=== PATIENT | female | born 1965 | race Caucasian/White ===

== ENCOUNTER 2019-02-20 16:49 | Emergency (ER) | payer OTHER ==
[~2019-02-20] VITALS: Ht 165.1 cm; Wt 90.7 kg
[~2019-02-20 16:49] MED LIST: AMIT50 PO; AMITRIPTYLINE; Amitriptyline100 MG PO; CIPR500 PO; CITRACAL; DITROPAN XL; EFFEXOR; ESTR2; ESTR2 PO; FOLI1; FOLI1 PO; GILENYA PO; Keppra750 MG PO; LEVE500 PO; MEDR2.5; MEDR2.5 PO; MULTCH; PHENA200 PO; PROM25 PO; SOLUMEDROL; SULTRIDS PO; VENL150ER PO; [UNRECOGNIZED DRUG - REMARK]
[2019-02-20 17:05] LABS: BASOPHILS ABSOLUTE AUTO 0.05 K/mm3 (0.00-0.23); BASOPHILS PERCENT AUTO 0 % (0-2); EOSINOPHILS ABSOLUTE AUTO 0.15 K/mm3 (0.00-0.68); EOSINOPHILS PERCENT AUTO 1 % (0-6); Hematocrit 34.6 % (33.0-51.0); Hemoglobin 11.5 g/dL (11.5-16.0); IMMATURE GRAN ABSOLUTE AUTO 0.05 K/mm3 (0.00-0.10); IMMATURE GRAN PERCENT AUTO 0 % (0-1); LYMPHOCYTES ABSOLUTE AUTO 0.71 K/mm3 (0.84-5.20); LYMPHOCYTES PERCENT AUTO 6 % (21-46); MONOCYTES ABSOLUTE AUTO 0.98 K/mm3 (0.16-1.47); MONOCYTES PERCENT AUTO 9 % (4-13); Mean Corpuscular HGB 30.3 pg (26.0-34.0); Mean Corpuscular HGB Conc 33.2 g/dL (31.5-36.5); Mean Corpuscular Volume 91 fL (80-100); Mean Platelet Volume 10.6 fL (9.1-12.4); NEUTROPHILS ABSOLUTE AUTO 9.45 K/mm3 (1.96-9.15); NEUTROPHILS PERCENT AUTO 83 % (41-73); Platelet Count 417 K/mm3 (150-400); RDW Coefficient Variation 12.9 % (11.7-14.2); RDW Standard Deviation 42.4 fL (35.1-46.3); Red Blood Cell Count 3.79 M/mm3 (3.80-5.20); White Blood Cell Count 11.39 K/mm3 (4.00-11.30)
[2019-02-20] MEDS ORDERED: Spironolactone25 MG PO (17:09)
[2019-02-20] MEDS ORDERED: LEVO-T25 MCG PO (17:09)
[2019-02-20 17:21] LABS: International Normalized Ratio 1.03; Prothrombin Time Results 10.9 Sec (9.7-11.5)
[2019-02-20 17:24] LABS: Alanine Aminotransfer (ALT/SGP 36 U/L (12-78); Alk Phos 154 U/L (50-136); Anion Gap 5 mmol/L (6-16); Aspartate Aminotrans (AST/SGOT 21 U/L (12-37); Bilirubin, Total 0.3 mg/dL (0.1-1.0); Blood Urea Nitrogen 18 mg/dL (8-24); Bun/Creatinine Ratio 19.2 (12.0-20.0); CO2, Blood 31 mmol/L (21-32); Chloride, Blood 99 mmol/L (98-108); Creatinine, Blood 0.94 mg/dL (0.40-1.00); Globulin, Blood 3.9 g/dL (2.2-4.0); Glomerular Filtration Rate >60 (60-); Glucose, Blood 106 mg/dL (70-99); Potassium, Blood 3.2 mmol/L (3.5-5.5); Sodium, Blood 135 mmol/L (136-145); Total Protein, Blood 7.9 g/dL (6.4-8.2)
[2019-02-20] MEDS ORDERED: GILENYA0.5 MG PO (17:34)
[2019-02-20] MEDS ORDERED: VITAMIN D32000 UNI1 PO (17:35)
== END 2019-02-20 19:20 | disposition home or self-care (01) ==
LOC: ER 16:49
PROVIDERS: Emergency Medicine
DX: G40.909 Epilepsy, unspecified, not intractable, without status epilepticus (principal); G81.91 Hemiplegia, unspecified affecting right dominant side
CPT/HCPCS: 36415; 70450; 80053; 85025; 85610; 93005; 93010; 96365; 96375; 99285-25; J1953; J2405

== ENCOUNTER 2022-06-19 20:35 | Emergency (ER) | payer OTHER ==
[~2022-06-19] VITALS: Ht 165.1 cm; Wt 81.7 kg
[~2022-06-19 20:35] MED LIST changes: +GILENYA0.5 MG PO; +LEVO-T25 MCG PO; +Spironolactone25 MG PO; +VITAMIN D32000 UNI1 PO
== END 2022-06-19 23:38 | disposition home or self-care (01) ==
LOC: ER 20:35
DX: S09.90XA Unspecified injury of head, initial encounter (principal); G35 Multiple sclerosis; X58.XXXA Exposure to other specified factors, initial encounter; Z79.890 Hormone replacement therapy; Z79.899 Other long term (current) drug therapy; Z91.81 History of falling
CPT/HCPCS: 70450

== ENCOUNTER 2022-10-18 18:15 | Inpatient (IN) | payer OTHER ==
[~2022-10-18] VITALS: Ht 165.1 cm; Wt 57.0 kg
[~2022-10-18 18:15] MED LIST changes: -LEVO-T25 MCG PO; +LEVSOD25 PO
[2022-10-18 19:47] LABS: Source, Urine Fem Cath
[2022-10-18 19:50] LABS: BASOPHILS ABSOLUTE AUTO 0.05 K/mm3 (0.00-0.23); BASOPHILS PERCENT AUTO 0 % (0-2); EOSINOPHILS ABSOLUTE AUTO 0.01 K/mm3 (0.00-0.68); EOSINOPHILS PERCENT AUTO 0 % (0-6); Hematocrit 33.1 % (33.0-51.0); Hemoglobin 11.5 g/dL (11.5-16.0); IMMATURE GRAN ABSOLUTE AUTO 0.35 K/mm3 (0.00-0.10); IMMATURE GRAN PERCENT AUTO 1 % (0-1); LYMPHOCYTES ABSOLUTE AUTO 0.24 K/mm3 (0.84-5.20); LYMPHOCYTES PERCENT AUTO 1 % (21-46); MONOCYTES ABSOLUTE AUTO 1.37 K/mm3 (0.16-1.47); MONOCYTES PERCENT AUTO 6 % (4-13); Mean Corpuscular HGB 30.6 pg (26.0-34.0); Mean Corpuscular HGB Conc 34.7 g/dL (31.5-36.5); Mean Corpuscular Volume 88 fL (80-100); Mean Platelet Volume 10.5 fL (9.1-12.4); NEUTROPHILS ABSOLUTE AUTO 22.54 K/mm3 (1.96-9.15); NEUTROPHILS PERCENT AUTO 92 % (41-73); Platelet Count 284 K/mm3 (150-400); RDW Standard Deviation 41.8 fL (35.1-46.3); Red Blood Cell Count 3.76 M/mm3 (3.80-5.20); White Blood Cell Count 24.56 K/mm3 (4.00-11.30)
[2022-10-18 19:53] LABS: Appearance, Urine Cloudy (Clear); Bilirubin, Urine Neg (Neg); Blood, Urine 2+ (Neg); Color, Urine Yellow (P-Yellow); Glucose Qualitative, Urine Neg (Neg); Ketones, Urine Neg (Neg); Leukocyte Esterase, Urine 3+ (Neg); Nitrite, Urine Pos (Neg); Protein, Urine 2+ (Neg); Urobilinogen, Urine NORM (Normal)
[2022-10-18 20:05] LABS: Bacteria Many /hpf; Squamous Epithelial Cells Few /hpf (Few); Transitional Epithelial Cells Rare /hpf (0-Rare); WBC Cast 0-2 /lpf (0); White Blood Cells, Urine 50-100 /hpf (0-5)
[2022-10-18 20:35] LABS: Albumin, Blood 3.4 g/dL (3.4-5.0); Albumin/Globulin Ratio 0.9 (0.8-1.8); Bilirubin, Total 0.6 mg/dL (0.1-1.0); Bun/Creatinine Ratio 14.5 (12.0-20.0); Calcium, Blood 9.7 mg/dL (8.5-10.1); Creatinine, Blood 0.97 mg/dL (0.40-1.00); Globulin, Blood 3.9 g/dL (2.2-4.0); Potassium, Blood 2.9 mmol/L (3.5-5.5); Total Protein, Blood 7.3 g/dL (6.4-8.2)
[2022-10-18 23:12] LABS: Magnesium, Blood 1.8 mg/dL (1.6-2.4)
[2022-10-19] MEDS ORDERED: KLOR-CON 1010 ME9 PO (03:42)
[2022-10-19] MEDS ORDERED: SPIRONOLACTONE25 MG PO (03:42)
--- NOTE | 2022-10-19 04:52 | NUR ---
SHIFT SUMMARY NOC ADMIT FROM ED WITH DX OF UROSEPSIS. PT A/O 2-3. CONFUSED AT TIMES. PT INC OF URINE X 1. PT HAS 1L NS INFUSING 2 75 MLS/HR. PT IS RESIDENT AT [facility]. PT MOTHER HIGHLY INVOLVED WITH PT CARE. PT HAD POTASSIUM OF 2.9 YESTERDAY WITH 60 MEQ REPLACEMENT, AWAITING AM LABS. PT SODIUM WAS 132 PT HAS RECEIVED 2L NS SO FAR WITH 3L CURRENTLY INFUSING. PT HAS MS AND IS WC BOUND BASELINE. PT ON TELE RUNNING NSR @ 99 BPM. PT IS CURRENTLY RESTING WITH BED ALARM ON, BED IN LOWEST POSITION, AND CALL LIGHT WITHIN REACH.
[2022-10-19 05:34] LABS: BASOPHILS ABSOLUTE AUTO 0.04 K/mm3 (0.00-0.23); BASOPHILS PERCENT AUTO 0 % (0-2); EOSINOPHILS ABSOLUTE AUTO 0.05 K/mm3 (0.00-0.68); EOSINOPHILS PERCENT AUTO 0 % (0-6); Hematocrit 36.5 % (33.0-51.0); IMMATURE GRAN ABSOLUTE AUTO 0.11 K/mm3 (0.00-0.10); IMMATURE GRAN PERCENT AUTO 1 % (0-1); LYMPHOCYTES ABSOLUTE AUTO 0.25 K/mm3 (0.84-5.20); LYMPHOCYTES PERCENT AUTO 2 % (21-46); MONOCYTES ABSOLUTE AUTO 0.75 K/mm3 (0.16-1.47); MONOCYTES PERCENT AUTO 4 % (4-13); Mean Corpuscular HGB 30.7 pg (26.0-34.0); Mean Corpuscular HGB Conc 32.9 g/dL (31.5-36.5); Mean Platelet Volume 10.4 fL (9.1-12.4); NEUTROPHILS ABSOLUTE AUTO 15.79 K/mm3 (1.96-9.15); NEUTROPHILS PERCENT AUTO 93 % (41-73); Platelet Count 226 K/mm3 (150-400); RDW Coefficient Variation 13.2 % (11.7-14.2); Red Blood Cell Count 3.91 M/mm3 (3.80-5.20); White Blood Cell Count 16.99 K/mm3 (4.00-11.30)
[2022-10-19 06:10] LABS: Mean Corpuscular Volume 93 fL (80-100)
[2022-10-19 06:13] LABS: Albumin, Blood 3.1 g/dL (3.4-5.0); Albumin/Globulin Ratio 0.8 (0.8-1.8); Bilirubin, Total 0.5 mg/dL (0.1-1.0); Calcium, Blood 8.6 mg/dL (8.5-10.1); Globulin, Blood 3.8 g/dL (2.2-4.0); Potassium, Blood 3.5 mmol/L (3.5-5.5); Total Protein, Blood 6.9 g/dL (6.4-8.2)
[2022-10-19 07:42] VITALS: BP 138/66
[2022-10-19 16:09] VITALS: BP 141/78
--- NOTE | 2022-10-19 17:54 | NUR ---
SHIFT SUMMARY- PT IS ALERT, PLESANT AND COOPERATIVE. SHE IS EATING AND DRIKING WELL. HER MOM WAS AT BEDSIDE THIS SHIFT. SHE IS RECIEVING IV ABX. WORKED WITH PT THIS SHIFT. SHE IS CURRENTLY IN THE CHAIR CALL LIGHT IS WITHIN REACH.
[2022-10-19 19:49] VITALS: BP 131/70
[2022-10-20 04:21] VITALS: BP 115/85
--- NOTE | 2022-10-20 05:03 | NUR ---
PT RESTING ON AND OFF DURING THE NIGHT. PT CONFUSED ALERT TO SELF. CALL LIGHT IIIN REACH BED ALRM ON. PT HAVING FEVER GIVEN TYLENOL.
[2022-10-20 06:21] LABS: Hemoglobin 10.4 g/dL (11.5-16.0); Mean Corpuscular HGB 30.5 pg (26.0-34.0); Mean Corpuscular HGB Conc 34.7 g/dL (31.5-36.5); Mean Platelet Volume 10.6 fL (9.1-12.4); Platelet Count 198 K/mm3 (150-400); RDW Coefficient Variation 13.2 % (11.7-14.2); RDW Standard Deviation 42.5 fL (35.1-46.3); Red Blood Cell Count 3.41 M/mm3 (3.80-5.20); White Blood Cell Count 9.57 K/mm3 (4.00-11.30)
[2022-10-20 06:26] LABS: Mean Corpuscular Volume 88 fL (80-100)
[2022-10-20 06:58] LABS: Albumin, Blood 2.6 g/dL (3.4-5.0); Albumin/Globulin Ratio 0.7 (0.8-1.8); Bilirubin, Total 0.3 mg/dL (0.1-1.0); Bun/Creatinine Ratio 13.2 (12.0-20.0); Calcium, Blood 8.7 mg/dL (8.5-10.1); Creatinine, Blood 0.91 mg/dL (0.40-1.00); Globulin, Blood 3.8 g/dL (2.2-4.0); Potassium, Blood 3.4 mmol/L (3.5-5.5); Thyroid Stimulating Hormone 1.75 uIU/mL (0.360-4.800); Thyroxine (T4) 5.6 ug/dL (4.8-13.9); Total Protein, Blood 6.4 g/dL (6.4-8.2)
[2022-10-20 07:32] VITALS: BP 120/69
--- NOTE | 2022-10-20 10:31 | NUR ---
Pt. is awake in bed and welcomes my visit. Pts. mother is present, but steps out soon after I arrive. Pt. is pleasant, but displays evidence of acute headaches. With theraputic listening and a calming presence Pt. displays evidence of a hopeful spirit. Rapport is established. Praayed with Pt. Pt. verbalized gratitude for the spiritual care visit.
[2022-10-20 15:19] VITALS: BP 100/64
--- NOTE | 2022-10-20 18:49 | NUR ---
SHIFT SUMMARY VSS. A&O X 2. CAN BE FORGETFUL, SPEECH IS MUMBLED & SLURRED. C/O WOLF TODAY. PROVIDED ORDERS FOR NORCO. MEDICATED TWICE WITH GOOD RELIEF STATED BY PT. ICE PACK PLACED ON BACK OF NECK FOR COMFORT. HEAD CT ORDERED AND DONE. REPORT ON CHART. PT IS 2 PERSON MAX ASSIST TO CHAIR/BSC. WILL LIKELY RETURN TO SENIOR CARE WHEN READY FOR DC.
[2022-10-20 19:56] VITALS: BP 126/58
--- NOTE | 2022-10-21 01:31 | NUR ---
PT HAVING HEADACHES DURING DAY SHIFT PT WAS GIVEN NORCO AND TYLENOL . ICE PACK TO NECK PLACED TO HELP WITH WOLF BUT DID NOT SEEM TO HELP. K PAD ( WARM PACK PLACEDD BEHIND PTS NECK. PT FELL ASLEEP FOR A WHILE AND SEEMED COMFORTBLE. PT DEPENDS WAS CHANGED AND PT APPEARED VERY UNCOMFORTBLE AT THAT TIME. PT GIVEN A NORCO AND K PALD REPLACED BEHIND PTS NECK. PT SLEEPING AT THIS TIME AN APPEARS TO BE COMFORTABLE. PT S MOTHER HERE EARLYER AND STATED SHE WANTS AN MRI DONE PTS MOTHER VERY WORRIED AND VERY ACTIVE IN PTS CARE. PT FOR LAST 2 DAYS HAS SEEMED CONFUSED AND ORIENTED X2 TO SELF AND PERSON. UNSURE BASE LINE BUT PTS MOTHER DID NOT SEEM CONCERNED ABOUT PT MENTAION IF IT WAS A CHANGE. CALL LIGHT IN REACH BED ALARM ON.
[2022-10-21 02:42] VITALS: BP 132/62
[2022-10-21 05:48] LABS: Bun/Creatinine Ratio 11.6 (12.0-20.0); Creatinine, Blood 0.95 mg/dL (0.40-1.00); Potassium, Blood 3.9 mmol/L (3.5-5.5)
[2022-10-21 07:54] VITALS: BP 97/81
[2022-10-21 15:24] VITALS: BP 114/54
--- NOTE | 2022-10-21 18:10 | NUR ---
PATIENT STARTED ON EAR GTT TO THE LEFT, OTITIS EXTERNA, MIGRAINE MEDICATION ADMINISTERED, PATIENT STATES PAIN IS IMPROVED, MORE ALERT TODAY, WHEN CONFUSION INCREASES SPEECH BECOMES VERY MUMBLED, MOTHER VISITED AND TALKED WITH DR MORAES, CALL LIGHT WITH IN REACH, MOTHER ENCIOURAGED TO HAVE COMPLETE FAMILY IDENTIFY A PRIMARY SPEECH FOR NURSES TO REPORT TO AND FOR THAT PERSON TO RELAY INFORMATION TO THE REST OF THE FAMILY. MOTHER CONTACTED NURSING FOOD SERVICE AIDE YESTERDAY ABOUT POA OF PATIENT AND NOT BEING REPORTED TO. CONSTANT REMINDING OF ASPIRATION PRECAUTIONS WHILE SWALLOWING MEDICATIONS, WILL RELAY TO PM RN
[2022-10-21 19:27] VITALS: BP 134/63
--- NOTE | 2022-10-22 02:59 | NUR ---
SHIFT SUMMERY, PT SEEMED MORE ALERT AT CHANGE OF SHIFT THSN SHE HAD BEEN THE LAST SEVERAL NIGHT , PT ALSO BEING MORE PHSICALY ACTIVE SITTING UP IN BED AND MOVING AROUND ALOT IN BED. PT GIVEN TYLENOL FOR PAIN AND MEDICATION FOR EAR ADMINISTRED. PT DENIED NEED FOR A SNACK. PT MOVING ALL OVER BED ON HER OWN BUT REPOSITIONE. PT SLEEPING MOST OF THE NIGHT AND APPEARS TO BE COMFORTABLE. PT DOSE NOT HAVE LABORED BREATHING NOR SEEM IN ANY KIND OF DISTRESS. CALL LIGHT IN REACH AND BED ALARM ON.
[2022-10-22 04:06] VITALS: BP 138/67
[2022-10-22 07:40] VITALS: BP 129/73
[2022-10-22] MEDS ORDERED: CEPH500 PO (13:43)
[2022-10-22] MEDS ORDERED: NEOMYCIN-POLYMY10 ML BOTHEARS (13:46)
--- NOTE | 2022-10-22 15:55 | NUR ---
DISCHARGE SUMMARY PT AxOx2-3 WITH INTERM FORGETFULNESS/CONFUSION. PT'S MOTHER IN ROOM THIS SHIFT, WHO IS ALSO HER CAREGIVER. PT DENIES PAIN THIS SHIFT. PT AND MOTHER GIVEN DC INSTRUCTIONS INCLUDING DC MEDICATIONS, FOLLOW UP APPOINTMENTS AND PATIENT EDUCATION HAND OUTS. PT AND HER MOTHER VERBALIZE UNDERSTANDING AND DENY ANY QUESTIONS AT THIS TIME. PT SAFELY ESCORTED OUT VIA WC WITH HER MOTHER AND RESEARCH AGRICULTURAL ENGINEER.
== END 2022-10-22 15:22 | disposition home or self-care (01) | DRG 871 ==
LOC: ER 18:15 → MEDS 22:48
PROVIDERS: Internal Medicine; Student in an Organized Health Care Education/Training Program; ADMIT Internal Medicine
DX: A41.51 Sepsis due to Escherichia coli [E. coli] (principal); G92.8 Other toxic encephalopathy; E87.1 Hypo-osmolality and hyponatremia; N39.0 Urinary tract infection, site not specified; I67.89 Other cerebrovascular disease; E87.6 Hypokalemia; E03.9 Hypothyroidism, unspecified; H92.02 Otalgia, left ear; G40.909 Epilepsy, unspecified, not intractable, without status epilepticus; F01.A0 Vascular dementia, mild, without behavioral disturbance, psychotic disturbance, mood disturbance, and anxiety; R51.9 Headache, unspecified; R79.89 Other specified abnormal findings of blood chemistry; G35 Multiple sclerosis; Z99.3 Dependence on wheelchair; Z79.890 Hormone replacement therapy; Z79.899 Other long term (current) drug therapy
CPT/HCPCS: 36415; 70450; 71045; 80048; 80053; 81001; 83605; 83735; 84436; 84443; 85025; 85027; 87077; 87086; 87186; 93005; 93010; 96361; 96365; 97110; 97116; 97162; 97530; 99285-25; A9270; J0696; J1650; J7030; P9612

== ENCOUNTER 2022-11-07 14:05 | Inpatient (IN) | payer OTHER ==
[~2022-11-07] VITALS: Ht 165.1 cm; Wt 77.8 kg
[~2022-11-07 14:05] MED LIST changes: +CEPH500 PO; +KLOR-CON 1010 ME9 PO; +NEOMYCIN-POLYMY10 ML BOTHEARS; +SPIRONOLACTONE25 MG PO
[2022-11-07 14:59] LABS: BASOPHILS ABSOLUTE AUTO 0.05 K/mm3 (0.00-0.23); BASOPHILS PERCENT AUTO 0 % (0-2); EOSINOPHILS ABSOLUTE AUTO 0.01 K/mm3 (0.00-0.68); EOSINOPHILS PERCENT AUTO 0 % (0-6); Hematocrit 35.7 % (33.0-51.0); Hemoglobin 11.9 g/dL (11.5-16.0); IMMATURE GRAN ABSOLUTE AUTO 0.12 K/mm3 (0.00-0.10); IMMATURE GRAN PERCENT AUTO 1 % (0-1); LYMPHOCYTES ABSOLUTE AUTO 0.29 K/mm3 (0.84-5.20); LYMPHOCYTES PERCENT AUTO 2 % (21-46); MONOCYTES ABSOLUTE AUTO 0.83 K/mm3 (0.16-1.47); MONOCYTES PERCENT AUTO 4 % (4-13); Mean Corpuscular HGB 29.7 pg (26.0-34.0); Mean Corpuscular HGB Conc 33.3 g/dL (31.5-36.5); Mean Corpuscular Volume 89 fL (80-100); Mean Platelet Volume 10.6 fL (9.1-12.4); NEUTROPHILS ABSOLUTE AUTO 18.05 K/mm3 (1.96-9.15); NEUTROPHILS PERCENT AUTO 93 % (41-73); Platelet Count 376 K/mm3 (150-400); RDW Coefficient Variation 13.1 % (11.7-14.2); Red Blood Cell Count 4.01 M/mm3 (3.80-5.20); White Blood Cell Count 19.35 K/mm3 (4.00-11.30)
[2022-11-07 15:21] LABS: International Normalized Ratio 1.18; Prothrombin Time Results 12.3 Sec (9.7-11.5)
[2022-11-07 15:26] LABS: Albumin, Blood 3.4 g/dL (3.4-5.0); Albumin/Globulin Ratio 0.7 (0.8-1.8); Bilirubin, Direct 0.3 mg/dL (0.0-0.3); Bilirubin, Indirect 0.2 mg/dL (0.1-0.7); Bilirubin, Total 0.5 mg/dL (0.1-1.0); Bun/Creatinine Ratio 15.7 (12.0-20.0); Calcium, Blood 10.2 mg/dL (8.5-10.1); Creatinine, Blood 1.27 mg/dL (0.40-1.00); Globulin, Blood 4.6 g/dL (2.2-4.0); Phosphorus, Blood 2.3 mg/dL (2.5-4.9)
[2022-11-07 16:07] LABS: Influenza A, PCR NEGATIVE (NEGATIVE); Influenza B, PCR NEGATIVE (NEGATIVE); Resp Syncytial Virus, PCR NEGATIVE (NEGATIVE); SARS-Cov-2 (COVID-19) PCR, MMC NEGATIVE (NEGATIVE)
[2022-11-07 17:54] VITALS: BP 108/72
[2022-11-07 20:09] VITALS: BP 112/77
[2022-11-07 21:07] LABS: Source, Urine Straight Cath
[2022-11-07 21:11] LABS: Appearance, Urine Cloudy (Clear); Bilirubin, Urine Neg (Neg); Blood, Urine 4+ (Neg); Color, Urine Yellow (P-Yellow); Glucose Qualitative, Urine Neg (Neg); Ketones, Urine Neg (Neg); Leukocyte Esterase, Urine 3+ (Neg); Nitrite, Urine Pos (Neg); Protein, Urine 3+ (Neg); Urobilinogen, Urine NORM (Normal)
[2022-11-07 21:19] LABS: White Blood Cells, Urine TNTC /hpf (0-5)
[2022-11-07 21:20] LABS: Bacteria Mod /hpf; Squamous Epithelial Cells Not Seen /hpf (Few)
[2022-11-08 02:19] VITALS: BP 131/78
[2022-11-08 05:12] LABS: BASOPHILS ABSOLUTE AUTO 0.02 K/mm3 (0.00-0.23); BASOPHILS PERCENT AUTO 0 % (0-2); EOSINOPHILS ABSOLUTE AUTO 0.01 K/mm3 (0.00-0.68); EOSINOPHILS PERCENT AUTO 0 % (0-6); Hematocrit 29.4 % (33.0-51.0); IMMATURE GRAN ABSOLUTE AUTO 0.07 K/mm3 (0.00-0.10); IMMATURE GRAN PERCENT AUTO 1 % (0-1); LYMPHOCYTES ABSOLUTE AUTO 0.49 K/mm3 (0.84-5.20); LYMPHOCYTES PERCENT AUTO 4 % (21-46); MONOCYTES ABSOLUTE AUTO 0.46 K/mm3 (0.16-1.47); MONOCYTES PERCENT AUTO 4 % (4-13); Mean Corpuscular HGB 30.1 pg (26.0-34.0); Mean Corpuscular Volume 89 fL (80-100); Mean Platelet Volume 10.9 fL (9.1-12.4); NEUTROPHILS ABSOLUTE AUTO 11.78 K/mm3 (1.96-9.15); NEUTROPHILS PERCENT AUTO 92 % (41-73); Platelet Count 268 K/mm3 (150-400); RDW Coefficient Variation 13.2 % (11.7-14.2); RDW Standard Deviation 43.1 fL (35.1-46.3); Red Blood Cell Count 3.32 M/mm3 (3.80-5.20); White Blood Cell Count 12.83 K/mm3 (4.00-11.30)
--- NOTE | 2022-11-08 05:59 | NUR ---
SHIFT SUMMARY PT SITTING UP IN BED EATING DINNER DURING BEDSIDE REPORT, MOTHER ASSISTING PT WITH FEEDING, PT DENIES PAIN, BOLUS INFUSING FROM ED, STRAIGHT CATH DONE AND URINE SAMPLE OBTAINED- ADMISSION ASSESSMENT DONE- PT INCONTIENT, PT ABLE TO TURN SIDE TO SIDE IN BED, 0220 PT FEBRILE AT 100.8- GAVE TYLENOL AND REMOVED EXTRA BLANKETS FROM PT-TEMP DECREASED TO 99.0, 0400- CALL FROM LAB RE: POSITIVE BLOOD CULTURE GROWING BOTH GRAM + AND GRAM - BACILLI- WILL PHONE CALL TO DR. HAGER-NO NEW ORDERS- BED LOW POSITION, CALL LIGHT WITHIN REACH, BED ALARM IN PLACE
[2022-11-08 06:02] LABS: Albumin, Blood 2.5 g/dL (3.4-5.0); Albumin/Globulin Ratio 0.7 (0.8-1.8); Bilirubin, Total 0.7 mg/dL (0.1-1.0); Bun/Creatinine Ratio 15.9 (12.0-20.0); Calcium, Blood 8.6 mg/dL (8.5-10.1); Creatinine, Blood 1.26 mg/dL (0.40-1.00); Globulin, Blood 3.7 g/dL (2.2-4.0); Magnesium, Blood 1.8 mg/dL (1.6-2.4); Potassium, Blood 3.4 mmol/L (3.5-5.5); Thyroid Stimulating Hormone 0.53 uIU/mL (0.360-4.800); Total Protein, Blood 6.2 g/dL (6.4-8.2)
[2022-11-08 07:38] VITALS: BP 118/73
[2022-11-08 11:24] LABS: Bun/Creatinine Ratio 17.1 (12.0-20.0); Creatinine, Blood 1.23 mg/dL (0.40-1.00); Potassium, Blood 3.7 mmol/L (3.5-5.5)
[2022-11-08 14:32] VITALS: BP 141/63
--- NOTE | 2022-11-08 16:36 | NUR ---
PATIENT A/OX3, FORGETFUL AT TIMES. PATIENT HAS DIFFICULTY WITH WORD FINDING AND IS SLOW TO RESPOND, BUT CAN MAKE HER NEEDS KNOWN. SLIGHT FEVER THIS SHIFT, AND TYLENOL GIVEN TO TREAT. PT/OT ORDERED AND PATIENT DID SPEND A MAJORITY OF THIS SHIFT UP IN CHAIR. TRANSFERS WITH FWW, GB AND 2 ASSIST. PATIENTS MOTHER HERE FOR MEALS TO ASSIST WITH FEEDING AND IS VERY SUPPORTIVE. PATIENT TOLERATING DIET. IV SITE LOST THIS AFTERNOON AND CHARGE NURSE IS ATTEMPTING TO PLACE A POWERGLIDE. SKIN INTACT. FALL PRECAUTIONS IN PLACE.
[2022-11-08 21:11] VITALS: BP 93/57
--- NOTE | 2022-11-09 04:01 | NUR ---
SHIFT SUMMARY PATIENT HAD NO ACUTE CHANGES. AXOX 2-3 FORGETFUL AND SLOW TO RESPOND. HX M.S. NPO FOR ULTRA SOUND OF ABDOMEN. NEW POWERGLIDE KUSHAL. LR INFUSING AT 100 mL/HR. IV ABXS INFUSED. FEBRILE WITH TEMP 101.6 AND TYLENOL 650 MG GIVEN WITH RECHECK OF 98.5. DENIES CHEST PAIN, SOB, AND N/V. TWO ASSIST TRANSFER WITH GB TO BSC. MOTHER AT BEDSIDE AT SHIFT CHANGE. CALL LIGHT IN REACH. BED IN LOWEST POSITION. WILL CONTINUE TO MONITOR UNTIL DAY SHIFT NURSE ASSUMES CARE.
[2022-11-09 04:40] VITALS: BP 163/78
[2022-11-09 05:10] LABS: BASOPHILS ABSOLUTE AUTO 0.02 K/mm3 (0.00-0.23); BASOPHILS PERCENT AUTO 0 % (0-2); EOSINOPHILS ABSOLUTE AUTO 0.15 K/mm3 (0.00-0.68); EOSINOPHILS PERCENT AUTO 1 % (0-6); Hematocrit 28.8 % (33.0-51.0); Hemoglobin 9.6 g/dL (11.5-16.0); IMMATURE GRAN ABSOLUTE AUTO 0.07 K/mm3 (0.00-0.10); IMMATURE GRAN PERCENT AUTO 1 % (0-1); LYMPHOCYTES PERCENT AUTO 5 % (21-46); MONOCYTES ABSOLUTE AUTO 0.84 K/mm3 (0.16-1.47); MONOCYTES PERCENT AUTO 8 % (4-13); Mean Corpuscular HGB Conc 33.3 g/dL (31.5-36.5); Mean Corpuscular Volume 90 fL (80-100); Mean Platelet Volume 10.8 fL (9.1-12.4); NEUTROPHILS ABSOLUTE AUTO 9.35 K/mm3 (1.96-9.15); NEUTROPHILS PERCENT AUTO 86 % (41-73); Platelet Count 267 K/mm3 (150-400); RDW Coefficient Variation 13.4 % (11.7-14.2); RDW Standard Deviation 44.3 fL (35.1-46.3); White Blood Cell Count 10.93 K/mm3 (4.00-11.30)
[2022-11-09 05:33] LABS: Bun/Creatinine Ratio 16.9 (12.0-20.0); Creatinine, Blood 1.24 mg/dL (0.40-1.00); Phosphorus, Blood 2.1 mg/dL (2.5-4.9); Potassium, Blood 3.4 mmol/L (3.5-5.5)
[2022-11-09 09:04] VITALS: BP 140/86
--- NOTE | 2022-11-09 09:58 | NUR ---
pt laying in bed, was npo as she was having u/s, did give her am meds with sip of water, one at a time, lungs are clear on r/a, no cough noted, hrr, no edema noted, ppp+2, cap refill <3sec vs stable, afebrile, iv site is clear and patent, power glide in place to dwight site is clear and patent, infusing kphos at this time, btx4, abd flat soft nontender, incont of bowel/bladder, briefs in place, skin has pink panus otherwise c/w/d, hx ms, pt hands are contracted, bedbound, milena, call light in reach.
--- NOTE | 2022-11-09 15:54 | NUR ---
Pt. is sitting up in a recliner and welcomes my visit. Pt. is pleasant and is known to this drawing instructor from previous hospitalizations as well as the community. Facilitate a life review. Pt is occassionally difficult to understand, because of her long-term condition, but displays evidence of engagement and focus. Rapport is established and Pt. displays evidence of trust. Prayed with Pt. Pt. verbalized graitutde for the spiritual care visit and welcomed this drawing instructor to return.
--- NOTE | 2022-11-09 19:14 | NUR ---
pt had a shower today, mom has been in to visit, and assist with care, pt has had no acute changes this shift, call light in reach.
[2022-11-09 19:27] VITALS: BP 133/69
[2022-11-10 05:08] VITALS: BP 120/79
[2022-11-10 05:13] LABS: HBSAG SCREEN Negative (Negative); HCV AB Non Reactive (Non Reactive); HEP A AB, IGM Negative (Negative); HEP B CORE AB, IGM Negative (Negative)
[2022-11-10 06:12] LABS: Bun/Creatinine Ratio 17.2 (12.0-20.0); Calcium, Blood 8.7 mg/dL (8.5-10.1); Creatinine, Blood 1.22 mg/dL (0.40-1.00); Phosphorus, Blood 2.8 mg/dL (2.5-4.9); Potassium, Blood 3.6 mmol/L (3.5-5.5)
[2022-11-10 07:15] VITALS: BP 126/74
[2022-11-10 15:18] VITALS: BP 115/55
--- NOTE | 2022-11-10 16:07 | NUR ---
Pt. is awake in a recliner and welcomes my visit. Pt. is unsettled about the nature of her recliner. Assist Pt. by contacting Pts. [employer] who was able to give assistance. Gracefully ended ou visit when Pt. requested a transfer to the restroom. Pt. verbalized gratitude for the spiritual care visit.
--- NOTE | 2022-11-10 18:27 | NUR ---
MAKES NEEDS KNOWN, MS +10 YEARS, SPEECH IS GARBLED AND HARD TO UNDERSTAND, PATEINT HELPFUL WITH CARE, 1-2 PERSON ASSIST, PATEINT DOES TIRE LATER IN THE DAY, MOTHER HELPFUL WITH CARE, PT/OT WORKED WITH PATIENT TODAY, NO ACUTE CHANGES, CALL LIGHT WITH IN REACH
[2022-11-10 19:24] VITALS: BP 137/76
--- NOTE | 2022-11-11 03:47 | NUR ---
SHIFT SUMMARY 57 YR F ADMITTED ON 11/08/22 FOR SEPSIS UTI. FULL CODE. NO ACUTE CHANGES THIS SHIFT. PT'S MOM WAS VISITING AT BEGINNING OF SHIFT. PT WAS UP IN THE RECLINER WATCHING TV. SHE HAS HAD NO C/O PAIN OR DISCOMFORT THIS SHIFT. SHE HAS SLEPT THROUGH MOST OF THE NIGHT. SPEECH CAN BE GARBLED AND HARD TO UNDERSTAND BUT PT IS ABLE TO MAKE HER NEEDS KNOWN.
[2022-11-11 04:00] VITALS: BP 131/72
[2022-11-11 06:09] LABS: Bun/Creatinine Ratio 17.4 (12.0-20.0); Calcium, Blood 9.1 mg/dL (8.5-10.1); Creatinine, Blood 1.09 mg/dL (0.40-1.00); Potassium, Blood 3.7 mmol/L (3.5-5.5)
[2022-11-11 07:31] VITALS: BP 110/80
[2022-11-11] MEDS ORDERED: CEFTRIAXONE2 G1 IV (14:57)
[2022-11-11] MEDS ORDERED: VISBIOME 112.51 EACH PO (14:58)
[2022-11-11 16:01] VITALS: BP 139/73
--- NOTE | 2022-11-11 17:02 | NUR ---
MAKES NEEDS KNOWN, UNCOORDINATED BODY MOVEMENTS DUE TO ADVANCED MS, PLEASANT TO CARE, POSSIBLE DISCHARGED ON SUNDAY, NO ACUTE CHANGES, USES CALL LIGHT APPRIATELY, BED/CHAIR ALARM ON AT ALL TIMES, MOM VERY HELPFUL WITH CARE, CALL LIGHT WITH IN REACH
[2022-11-11 19:29] VITALS: BP 130/77
[2022-11-12 03:26] VITALS: BP 131/76
--- NOTE | 2022-11-12 05:55 | NUR ---
SHIFT SUMMARY NOC PT A/O 2-3. PLEASANTLY CONFUSED AND COOPERATIVE WITH CARE. PT HAS PUREWICK IN PLACE DRAINING CLEAR YELLOW URINE TO SUCTION. PT HAS LR INFUSING @ 100 MLS/HR. PG IN KUSHAL THAT DOES NOT DRAW. HAS REDNESS IN GROIN AREA, POWDER APPLIED. PT IS RESIDENT AT [facility]. PT CURRENTLY RESTING WITH BED ALARM ON, BED IN LOWEST POSITION, AND CALL LIGHT WITHIN REACH.
[2022-11-12 06:10] LABS: Bun/Creatinine Ratio 15.7 (12.0-20.0); Calcium, Blood 9.4 mg/dL (8.5-10.1); Creatinine, Blood 1.02 mg/dL (0.40-1.00); Potassium, Blood 3.8 mmol/L (3.5-5.5)
[2022-11-12 07:38] VITALS: BP 133/64
[2022-11-12 15:36] VITALS: BP 109/62
--- NOTE | 2022-11-12 15:42 | NUR ---
SHIFT SUMMARY MS MARTINEZ IS ALERT, ORIENTATED X2-3, FORGETFUL WITH POOR SHORT TERM MEMORY. SHE HAS HAD GOOD FAMILY/FRIEND SUPPORT AT HER SIDE TODAY. DENIES ANY PAIN. UNSTEADY TRANSFER STAND-PIVOT WITH GAIT BELT, WALKER AND 2 PERSON ASSIST. SAT UP IN THE CHAIR FOR BREAKFAST AND LUNCH. INCONTINENT OF URINE, PUREWICK IN PLACE. IVF INFUSING AT 100CC/HR. BED LOW, CALL LIGHT IN REACH.
[2022-11-12 19:24] VITALS: BP 128/113
--- NOTE | 2022-11-12 23:45 | NUR ---
2025 PT LYING IN BED, DENIES ANY DISCOMFORT AT THIS TIME. NO APPARENT SIGNS OF DISTRESS. PT DENIES NEED FOR ANYTHING AT THIS TIME. CALL LIGHT IS IN REACH.
--- NOTE | 2022-11-12 23:45 | NUR ---
2245 PT LYING IN BED, AWAKE, WATCHING TV. DENIES NEED FOR ANYTHING AT THIS TIME. NO APPARENT SIGNS OF DISTRESS. CALL LIGHT IS IN REACH.
--- NOTE | 2022-11-13 00:14 | NUR ---
PT LYING IN BED, EYES CLOSED, APPEARS TO BE RESTING. BREATHING IS EVEN, UNLABORED. NO APPARENT SIGNS OF DISTRESS. CALL LIGHT IS IN REACH.
--- NOTE | 2022-11-13 03:55 | NUR ---
0200 PT LYING IN BED, EYES CLOSED, APPEARS TO BE RESTING. BREATHING IS EVEN, UNLABORED. NO APPARENT SIGNS OF DISTRESS. CALL LIGHT IS IN REACH.
--- NOTE | 2022-11-13 03:55 | NUR ---
PT SITTING UP ON EDGE OF BED, PULLING GOWN OFF, PG PULLED OUT. PLACED A NEW IV VIA US. CHECKED PLACEMENT AND FUNCTION OF PUREWICK, IT IS WORKING WELL. PT DENIES NEED FOR ANYTHING AT THIS TIME AND IS UNSURE WHY SHE WAS PULLING OFF HER GOWN. PLACED A CLEAN GOWN ON THE PT. PT TOLERATED WELL. NO APPARENT SIGNS OF DISTRESS. CALL LIGHT IS IN REACH.
[2022-11-13 03:56] VITALS: BP 131/71
--- NOTE | 2022-11-13 06:13 | NUR ---
PT IS AAO X 3-4. PT DID WAKE UP LAST NIGHT AT ONE POINT, YANKED HER GOWN OFF, PULLED HER PG OUT AND APPEARED SLIGHTLY CONFUSED. A NEW IV WAS PLACED. PT DENIED DISCOMFORT FOR THIS SHIFT.PUREWICK IN PLACE WITH CLEAR YELLOW URINE.
--- NOTE | 2022-11-13 06:14 | NUR ---
PT LYING IN BE, EYES CLOSED, APPEARS TO BE RESTING. BREATHING IS EVEN, UNLABORED. NO APPARENT SIGNS OF DISTRESS. CALL LIGHT IS IN REACH. NO OTHER CHANGES THIS SHIFT. BED ALARM IS ON.
[2022-11-13 07:27] VITALS: BP 129/67
[2022-11-13 14:47] LABS: Influenza A, PCR NEGATIVE (NEGATIVE); Influenza B, PCR NEGATIVE (NEGATIVE); Resp Syncytial Virus, PCR NEGATIVE (NEGATIVE); SARS-Cov-2 (COVID-19) PCR, MMC NEGATIVE (NEGATIVE)
[2022-11-13 16:01] VITALS: BP 119/65
--- NOTE | 2022-11-13 16:42 | NUR ---
SHIFT SUMMARY PATIENT DENIES ANY DISCOMFORT OR ISSUES TODAY. CALLS APPROPRIATELY NEEDED. REQUIRED 3 PERSON ASSIST TO COMMODE AND BACK TO BED. PUREWICK IN PLACE. ORIENTEDX4, MUMBLED SPEECH DUE TO MULTIPLE SCLEROSIS. WILL CONTINUE TO MONITOR.
--- NOTE | 2022-11-13 17:17 | NUR ---
THIS VP SITE HAS REVIEWED AND AGREES WITH ALL NOTES AND ASSESSMENTS BY RAJAN FORTUNATO.
[2022-11-13 19:33] VITALS: BP 133/65
[2022-11-14 04:58] VITALS: BP 134/91
--- NOTE | 2022-11-14 06:39 | NUR ---
SHIFT SUMMARY PT SITTING UP IN BED DURING BEDSIDE REPORT- PT DENIED PAIN, PERIWICK IN PLACE, PT SLEPT T/O NIGHT WITHOUT C/O, PT REPOSITIONED AND BRIEF CHANGED, PT TOLERATED WELL
[2022-11-14 07:19] VITALS: BP 121/61
[2022-11-14 15:48] VITALS: BP 113/62
--- NOTE | 2022-11-14 16:33 | NUR ---
SHIFT SUMMARY PATIENT AOX4 DENIES PAIN OR DISCOMFORT, USES CALL LIGHT APPROPRIATELY TO COMMUNICATE NEEDS. CONTINUING TO RECIVE IV ANTIBIOTICS. BED IN LOW POSITION. CALL LIGHT IN REACH. WILL CONTINUE TO MONITOR.
[2022-11-14 19:31] VITALS: BP 87/57
[2022-11-15 05:43] VITALS: BP 125/76
[2022-11-15 07:15] VITALS: BP 128/71
--- NOTE | 2022-11-15 15:21 | NUR ---
Pt. is awake in bed and welcomes my visit. Rapport is quickly re-established and we had a wonderful visit. Pt. can be hard to understand sometimes because of her MS, but she displayed evidence of trust and substantial engagement during our visit. Facilitated a life review and spoke of matters of her personal prateek. Pt. requested this experimental psychologist to inform her brother in-law and former surgery assistant that she is in the hospital. Prayed with Pt. Pt. verbalized gratitude for the time spent in our spiritual care visit.
[2022-11-15 15:31] VITALS: BP 117/68
[2022-11-15 19:34] VITALS: BP 116/61
[2022-11-16 06:01] VITALS: BP 108/66
[2022-11-16 07:48] VITALS: BP 104/76
== END 2022-11-16 13:00 | disposition home health service (06) | DRG 872 ==
LOC: ER 14:05 → MEDS 16:40 → ER 16:40 → MEDS 16:40 → ENPENDDIS 11-13 10:22 → MEDS 11-16 13:00
PROVIDERS: Emergency Medicine; Family Medicine; Student in an Organized Health Care Education/Training Program; ADMIT Student in an Organized Health Care Education/Training Program
DX: A41.51 Sepsis due to Escherichia coli [E. coli] (principal); N17.9 Acute kidney failure, unspecified; E87.20 Acidosis, unspecified; N39.0 Urinary tract infection, site not specified; R74.01 Elevation of levels of liver transaminase levels; Z20.822 Contact with and (suspected) exposure to COVID-19; E83.39 Other disorders of phosphorus metabolism; R65.20 Severe sepsis without septic shock; R29.6 Repeated falls; E87.6 Hypokalemia; K80.20 Calculus of gallbladder without cholecystitis without obstruction; E03.9 Hypothyroidism, unspecified; I10 Essential (primary) hypertension; G35 Multiple sclerosis; Z79.2 Long term (current) use of antibiotics; Z79.890 Hormone replacement therapy; Z79.899 Other long term (current) drug therapy
CPT/HCPCS: 0241U; 36415; 71045; 76705; 76770; 80048; 80053; 80074; 81001; 82248; 82570; 83605; 83735; 84100; 84300; 84443; 85025; 85610; 85730; 87040; 87077; 87086; 87186; 93005; 93010; 96361; 96372; 96374; 96376; 97110; 97110-CQ; 97162; 97166; 97530; 97535; 99285-25; A9270; C1751; G0378; J0696; J0713; J1644; J1650; J3480; J7030; J7060; J7120; P9612

== ENCOUNTER → 2023-02-23 | Outpatient (CLI) | payer OTHER ==
[~2023-02-23] MED LIST changes: +CEFTRIAXONE2 G1 IV; +VISBIOME 112.51 EACH PO
[2023-02-23 16:00] LABS: Source, Urine Voided
[2023-02-23 16:12] LABS: Appearance, Urine Clear (Clear); Bilirubin, Urine Neg (Neg); Blood, Urine Neg (Neg); Color, Urine Yellow (P-Yellow); Glucose Qualitative, Urine Neg (Neg); Ketones, Urine Neg (Neg); Leukocyte Esterase, Urine Neg (Neg); Nitrite, Urine Neg (Neg); Protein, Urine Neg (Neg); Urobilinogen, Urine NORM (Normal); pH, Urine 6.5 (5.0-8.0)
== END | disposition home or self-care (01) ==
LOC: LAB 14:23 → LAB SHORT 14:23
PROVIDERS: Internal Medicine
DX: N39.0 Urinary tract infection, site not specified (principal)
CPT/HCPCS: 81003

== ENCOUNTER 2023-08-02 04:13 | Emergency (ER) | payer OTHER ==
[~2023-08-02] VITALS: Ht 165.1 cm; Wt 77.1 kg
[2023-08-02 06:41] LABS: Source, Urine Foley catheter
[2023-08-02] MEDS ORDERED: CEPH500 PO (06:52)
[2023-08-02 07:00] VITALS: BP 106/60
[2023-08-02 07:02] LABS: Bilirubin, Urine Neg (Neg); Blood, Urine 2+ (Neg); Glucose Qualitative, Urine Neg (Neg); Ketones, Urine Neg (Neg); Leukocyte Esterase, Urine 3+ (Neg); Nitrite, Urine Neg (Neg); Protein, Urine 3+ (Neg); Urobilinogen, Urine NORM (Normal)
[2023-08-02 07:21] LABS: Appearance, Urine Cloudy (Clear); Bacteria Few /hpf; Color, Urine Yellow (P-Yellow); Mucus Light (0-Heavy); Squamous Epithelial Cells Not Seen /hpf (Few); White Blood Cells, Urine 50-100 /hpf (0-5)
== END 2023-08-02 08:01 | disposition home or self-care (01) ==
LOC: ER 04:13
PROVIDERS: Emergency Medicine
DX: T83.511A Infection and inflammatory reaction due to indwelling urethral catheter, initial encounter (principal); N39.0 Urinary tract infection, site not specified; Y73.2 Prosthetic and other implants, materials and accessory gastroenterology and urology devices associated with adverse incidents; Z79.899 Other long term (current) drug therapy
CPT/HCPCS: 51702; 81001; 87077; 87086; 87186; 99283; A9270

== ENCOUNTER 2024-10-04 20:58 | Emergency (ER) | payer OTHER ==
[~2024-10-04] VITALS: Ht 165.1 cm; Wt 113.4 kg
[2024-10-04 21:14] VITALS: BP 136/70
== END 2024-10-04 22:24 | disposition home or self-care (01) ==
LOC: ER 20:58
DX: T83.021A Displacement of indwelling urethral catheter, initial encounter (principal); Z43.6 Encounter for attention to other artificial openings of urinary tract; Z79.899 Other long term (current) drug therapy; Z79.2 Long term (current) use of antibiotics
CPT/HCPCS: 51702; 99283-25